=== PATIENT | female | born 1965 | race Asian ===

== ENCOUNTER 2021-12-02 07:49 | Outpatient (CLI) | payer OTHER ==
[2021-12-02] MEDS ORDERED: Iopamidol 300 61% 100 ML VIAL FS ONE (12:51)
== END 2021-12-02 07:50 | disposition home or self-care (01) ==
LOC: CSHCT 07:49
PROVIDERS: ATTEND Family Medicine
DX: R07.81 Pleurodynia (principal); R10.12 Left upper quadrant pain; S32.049A Unspecified fracture of fourth lumbar vertebra, initial encounter for closed fracture; S32.059A Unspecified fracture of fifth lumbar vertebra, initial encounter for closed fracture
CPT/HCPCS: 74160; Q9967